=== PATIENT | male | born 1985 | race Caucasian/White ===

== ENCOUNTER 2018-05-26 06:02 | Emergency (ER) | payer BC ==
[~2018-05-26] VITALS: Ht 167.6 cm; Wt 71.3 kg
[~2018-05-26 06:02] MED LIST: FIORICET,ESG1 TABLET PO; LORTAB 5-325 M1 EACH PO; NAPROXEN500 MG PO; NOHOMEMEDS; OMEPRAZOLE40 M1 PO; PEPCID20 MG; PEPCID20 MG PO; PROTONIX40 MG PO; REGLAN10 MG PO; ZANTAC150 MG PO
[2018-05-26 08:06] VITALS: BP 130/99
== END 2018-05-26 08:06 | disposition home or self-care (01) ==
LOC: EME 06:02
PROC: 09C0XZZ Extirpation of Matter from Right External Ear, External Approach (ICD-10-PCS; principal; 2018-05-26)
PROC: 09C1XZZ Extirpation of Matter from Left External Ear, External Approach (ICD-10-PCS; principal; 2018-05-26)
DX: H61.22 Impacted cerumen, left ear (principal); T70.0XXA Otitic barotrauma, initial encounter; Y93.15 Activity, underwater diving and snorkeling; Z90.49 Acquired absence of other specified parts of digestive tract
CPT/HCPCS: 99281; 99283